=== PATIENT | male | born 1965 | race Caucasian/White ===

== ENCOUNTER 2024-06-20 15:07 | Emergency (ER) | payer OTHER ==
[2024-06-20 15:30] VITALS: O2SAT 98
[2024-06-20 15:42] LABS: BASOPHILS % (AUTO) 0.2 %; HCT - HEMATOCRIT 48.2 % (42.0-52.0); HGB - HEMOGLOBIN 16.1 g/dL (14.0-18.0); LYMPHOCYTES # (AUTO) 1.5 10^3/uL (1.5-3.5); LYMPHOCYTES % (AUTO) 8.4 %; MEAN CORPUSCULAR HEMOGLOBIN 28.9 pg (27.0-31.0); MEAN CORPUSCULAR HGB CONC 33.4 g/dL (32.0-36.0); MEAN CORPUSCULAR VOLUME 86.4 fL (80.0-94.0); MEAN PLATELET VOLUME 9.3 fL (7.4-11.4); MONOCYTES # (AUTO) 1.1 10^3/uL (0.0-1.0); MONOCYTES % (AUTO) 6.2 %; NEUTROPHILS # (AUTO) 15.1 10^3/uL (1.5-6.6); NEUTROPHILS % (AUTO) 84.9 %; PLT - PLATELET COUNT 272 10^3/uL (130-450); RED BLOOD COUNT 5.58 10^6/uL (4.70-6.10); RED CELL DISTRIBUTION WIDTH 13.7 % (12.0-15.0); WHITE BLOOD COUNT 17.8 x10^3/uL (4.8-10.8)
[2024-06-20 15:43] LABS: BILIRUBIN,URINE SMALL (NEGATIVE); GLUCOSE, URINE (UA) NEGATIVE (NEGATIVE); KETONES,URINE (UA) TRACE mg/dL (NEGATIVE); LEUKOCYTE ESTERASE, URINE NEGATIVE (NEGATIVE); NITRITE,URINE NEGATIVE (NEGATIVE); OCCULT BLOOD,URINE SMALL (NEGATIVE); PROTEIN,URINE 100 mg/dL (NEGATIVE); UROBILINOGEN,URINE 0.2 (NORMAL) E.U./dL (NORMAL)
[2024-06-20 15:46] LABS: CLARITY,URINE HAZY (CLEAR)
--- NOTE | 2024-06-20 15:49 | ED Physician Documentation ---
History of Present Illness - Stated complaint Stated Complaint: N/V,DEHYDRATION - Chief complaint Chief Complaint: General - Additonal information Additional information: 59-year-old male who is undergoing treatment for throat cancer and has had multiple complications with radiation who is n.p.o. and very cachectic appearing presents emergency department for dehydration. Patient reports that he is here visiting a friend from [place] he uses his cell phone to type out communication with staff. He recently flew in a couple days ago and has been having a hard time controlling his nausea and vomiting. Patient says that in [place] he no rmally gets 1 L of IV fluids every week for dehydration. He has Zofran at home but has been hard and being a hard time keeping his PEG tube feeds with oral Zofran because of the nausea and vomiting that he has been experiencing. Patient says that he does not want any labs or workup he is very confident that all he needs is a liter of IV fluids and appears to be quite decisional and not confused. Patient's friend is here with him in the emergency department drove him in today. Patient denies any fevers or chills no abdominal pain PD PAST MEDICAL HISTORY - Past Medical History Past Medical History: Yes - Past Surgical History Past Surgical History: No - Present Medications Home Medications: Ambulatory Orders Medication Instructions Recorded Confirmed Ondansetron Odt [Zofran Odt] 4 mg TL Q6H PRN #10 tablet 06/20/24 - Allergies Allergies/Adverse Reactions: Allergies Allergy/AdvReac Type Severity Reaction Status Date / Time No Known Drug Allergies Allergy Verified 06/20/24 15:19 - Social History Does the pt smoke?: No Smoking Status: Never smoker Does the pt drink ETOH?: No Does the pt have substance abuse?: No - Immunizations Immunizations are current?: Yes PD ED PE NORMAL - Vitals Vital signs reviewed: Yes - General General: Alert and oriented X 3, No acute distress, Other (cachectic) - HEENT HEENT: Atraumatic, PERRL - Cardiac Cardiac: Other (tachy) - Respiratory Respiratory: No respiratory distress, Clear bilaterally - Abdomen Abdomen: Normal bowel sounds, Soft, Non tender, No organomegaly Results - Vitals Vitals: Vital Signs - 24 hr 06/20/24 06/20/24 15:20 16:54 Temperature 36.8 C 36.7 C Heart Rate 88 95 Respiratory 18 18 Rate Blood Pressure 88/60 L 189/112 H O2 Saturation 98 98 Oxygen O2 Source Room air - Labs Labs: Laboratory Tests 06/20/24 06/20/24 06/20/24 15:30 15:30 15:30 WBC 17.8 H RBC 5.58 Hgb 16.1 Hct 48.2 MCV 86.4 MCH 28.9 MCHC 33.4 RDW 13.7 Plt Count 272 MPV 9.3 Neut # (Auto) 15.1 H Lymph # (Auto) 1.5 [place] # (Auto) 1.1 H Eos # (Auto) 0.0 Baso # (Auto) 0.0 Absolute Nucleated RBC 0.00 Nucleated RBC % 0.0 Sodium 138 Potassium 3.6 Chloride 94 L Carbon Dioxide 35 H Anion Gap 9.0 BUN 38 H Creatinine 1.1 Estimated GFR (MDRD) 69 L Glucose 122 H Calcium 11.4 H Total Bilirubin 0.9 AST 28 ALT 29 Alkaline Phosphatase 87 Total Protein 9.0 H Albumin 5.3 Globulin 3.7 Albumin/Globulin Ratio 1.4 Lipase 748 H Urine Color YELLOW Urine Clarity HAZY Urine pH 6.0 Ur Specific [place] >=1.030 H Urine Protein 100 H Urine Glucose (UA) NEGATIVE Urine Ketones TRACE Urine Occult Blood SMALL H Urine Nitrite NEGATIVE Urine Bilirubin SMALL H Urine Urobilinogen 0.2 (NORMAL) Ur Leukocyte Esterase NEGATIVE Urine RBC None Seen Urine WBC 4-5 Ur Squamous Epith Cells FEW Squamous Urine Bacteria Few Urine Casts 3-5 WBC Casts Urine Mucus Marked Strands Ur Microscopic Review INDICATED Urine Culture Comments NOT INDICATED PD Medical Decision Making - ED course ED course: 59-year-old male presents emergency department for nausea and vomiting. Patient is here visiting a friend for a golf tournament he is normally completely independent although he is quite cachectic patient's friend named Herb who brought him into the emergency department reports that this is how he is looked for the last 7 years. Patient appears to be alert and oriented he is not confused he says that he does not want further workup in the emergency department and just wants a liter of IV fluids as well as IV Zofran. Patient given IV Zofran as well as a liter of IV fluids and says that he feels confident he will be able to tolerate his PEG tube feeds now he says that he does not want labs done or any further workup. He is told to add electrolytes to his PEG tube feedings and that if he changes his mind and would like further workup to come back to the emergency department for further evaluation and IV fluids as needed. Patient's friend says that he is more than happy to bring him back to the emergency department if he has any worsening symptoms or if he is unable to tole rate his PEG tube feeds. Prescription of Zofran was sent to patient's preferred pharmacy [facility] and he says that he feels more than comfortable to come back if needed for further workup and evaluation Departure - Departure Disposition: 01 Home, Self Care Clinical Impression: Nausea & vomiting Instructions: ED Nausea Vomiting Prescriptions: Ondansetron Odt [Zofran Odt] 4 mg TL Q6H PRN #10 tablet PRN Reason: Nausea / Vomiting Comments: Thank you for trusting us with your care. If you change your mind and would like to pursue labs and further workup please come back to the emergency department. I have sent a prescription of Zofran to your preferred pharmacy on file. If you are unable to keep anything down please come back to the emergency department. I would encourage you to put things like Gatorade or coconut water in your PEG tube to help with electrolyte replenishment. Again if you start having shortness of breath chest pain or any worsening symptoms please come back to the emergency department. Forms: PCP List Discharge Date/Time: 06/20/24 16:54
[2024-06-20 15:58] LABS: ALBUMIN 5.3 g/dL (3.2-5.5); ALBUMIN/GLOBULIN RATIO 1.4 (1.0-2.2); BILIRUBIN,TOTAL 0.9 mg/dL (0.2-1.0); CALCIUM 11.4 mg/dL (8.5-10.3); CREATININE 1.1 mg/dL (0.6-1.3); POTASSIUM 3.6 mmol/L (3.5-4.5)
[2024-06-20 16:01] LABS: BACTERIA,URINE Few /HPF (None Seen); MUCUS,URINE Marked Strands; RBC,URINE None Seen /HPF (0-5); SQUAMOUS EPITHELIAL CELL,UR FEW Squamous (<= Few)
[2024-06-20] MEDS: ONDANSETRON 4 MG/2 ML VIAL IVP STA (16:10)
[2024-06-20] MEDS: SODIUM CHLORIDE 0.9% 1,000 ML IV ONE (16:10)
[2024-06-20 17:02] VITALS: BP 189/112
== END 2024-06-20 16:54 | disposition home or self-care (01) ==
LOC: ED 15:07
DX: R11.2 Nausea with vomiting, unspecified (principal); Z93.1 Gastrostomy status
CPT/HCPCS: 36415; 80053; 81001; 81003; 83690; 85025; 87086; 96374; 99283

== ENCOUNTER 2024-06-21 18:48 | Emergency (ER) | payer OTHER ==
--- NOTE | 2024-06-21 18:59 | ED Physician Documentation ---
History of Present Illness - Stated complaint Stated Complaint: DEHYDRATED - Chief complaint Chief Complaint: General - Additonal information Additional information: Patient is a 59-year-old male presenting to the emergency department with co ncerns of dehydration. Patient has past medical history of oropharyngeal cancer. He notes this was over 10 years ago. He is currently residing in [place] but visiting a friend here on Monday. Ever since his flight here he has had difficulty with nausea vomiting fatigue, lightheadedness, dizziness. Patient was seen here yesterday in the emergency department and discharged home after fluids and Zofran were given and he was feeling significantly better. Patient has PEG tube in place due to difficulty swallowing and history of aspiration. He notes today he had multiple episodes of vomiting and has concerns for aspiration. He notes this morning he also had a syncopal episode due to lightheadedness. Patient notes while in [place] he usually receives weekly IV infusions of saline due to difficulty with p.o. intake at home. Patient notes he was unable to get this since he was on vacation this week. Patient did receive 1 L of fluids yesterday and felt significantly better but when he went home and tried to do PEG tube feedings again his nausea and vomiting returned. He has been trying oral [id number] Zofran but no relief. He denies any fevers he has had some mild congestion but no other symptoms. Patient is not currently undergoing chemo treatment or radiation treatment this was multiple years ago and his oropharyngeal cancer is in remission. PD PAST MEDICAL HISTORY - Past Medical History Past Medical History: Yes - Past Surgical History Past Surgical History: No - Present Medications Home Medications: Ambulatory Orders Medication Instructions Recorded Confirmed Ondansetron Odt [Zofran Odt] 4 mg TL Q6H PRN #10 tablet 06/20/24 - Allergies Allergies/Adverse Reactions: Allergies Allergy/AdvReac Type Severity Reaction Status Date / Time No Known Drug Allergies Allergy Verified 06/21/24 18:52 - Social History Does the pt smoke?: No Smoking Status: Never smoker Does the pt drink ETOH?: No Does the pt have substance abuse?: No - Immunizations Immunizations are current?: Yes - POLST Patient has POLST: No PD ED PE NORMAL - Vitals Vital signs reviewed: Yes - General General: Alert and oriented X 3, Other (Patient is cachectic appearing but able to answer questions.) - HEENT HEENT: Atraumatic - Neck Neck: Supple, no meningeal sign - Cardiac Cardiac: RRR, No murmur, No gallop, No rub - Respiratory Respiratory: No respiratory distress - Abdomen Abdomen: Normal bowel sounds, Soft, Non tender, Non distended - Male Male : Deferred - Rectal Rectal: Deferred - Back Back: No CVA TTP, No spinal TTP - Extremities Extremities: No deformity - Neuro Neuro: Alert and oriented X 3 Eye Opening: Spontaneous Motor: Obeys Commands Verbal: Oriented GCS Score: 15 - Psych Psych: Normal mood Results - Vitals Vitals: Vital Signs - 24 hr 06/21/24 06/21/24 18:52 20:21 Temperature 36.8 C Heart Rate 80 Respiratory 16 Rate Blood Pressure 90/50 L 138/76 H O2 Saturation 100 Oxygen O2 Source Room air - Labs Labs: Laboratory Tests 06/21/24 06/21/24 06/21/24 19:09 19:09 19:09 WBC 11.6 H RBC 4.92 Hgb 14.1 Hct 43.2 MCV 87.8 MCH 28.7 MCHC 32.6 RDW 13.8 Plt Count 194 MPV 9.4 Neut # (Auto) 9.7 H Lymph # (Auto) 1.3 L [place] # (Auto) 0.6 Eos # (Auto) 0.0 Baso # (Auto) 0.0 Absolute Nucleated RBC 0.00 Nucleated RBC % 0.0 Sodium 138 Potassium 3.7 Chloride 98 L Carbon Dioxide 34 H Anion Gap 6.0 BUN 40 H Creatinine 1.0 Estimated GFR (MDRD) 77 L Glucose 138 H Calcium 9.9 Magnesium 2.1 Total Bilirubin 0.7 AST 23 ALT 25 Alkaline Phosphatase 67 Troponin I High Sens 7.5 Total Protein 7.9 Albumin 4.5 Globulin 3.4 Albumin/Globulin Ratio 1.3 Lipase 70 Urine Color Urine Clarity Urine pH Ur Specific [place] Urine Protein Urine Glucose (UA) Urine Ketones Urine Occult Blood Urine Nitrite Urine Bilirubin Urine Urobilinogen Ur Leukocyte Esterase Ur Microscopic Review Urine Culture Comments Nasal Adenovirus (PCR) Nasal B. parapertussis DNA (PCR) Nasal Coronavir 229E PCR Nasal Coronavir HKU1 PCR Nasal Coronavir NL63 PCR Nasal Coronavir OC43 PCR Nasal Enterovir/Rhinovir PCR Nasal Influenza B PCR Nasal Influenza A PCR Nasal Parainfluen 1 PCR Nasal Parainfluen 2 PCR Nasal Parainfluen 3 PCR Nasal Parainfluen 4 PCR Nasal RSV (PCR) Nasal B.pertussis DNA PCR Nasal C.pneumoniae (PCR) Zohaib Human Metapneumo PCR Nasal M.pneumoniae (PCR) Nasal SARS-CoV-2 (PCR) 06/21/24 06/21/24 19:14 21:18 WBC RBC Hgb Hct MCV MCH MCHC RDW Plt Count MPV Neut # (Auto) Lymph # (Auto) [place] # (Auto) Eos # (Auto) Baso # (Auto) Absolute Nucleated RBC Nucleated RBC % Sodium Potassium Chloride Carbon Dioxide Anion Gap BUN Creatinine Estimated GFR (MDRD) Glucose Calcium Magnesium Total Bilirubin AST ALT Alkaline Phosphatase Troponin I High Sens Total Protein Albumin Globulin Albumin/Globulin Ratio Lipase Urine Color YELLOW Urine Clarity CLEAR Urine pH 7.0 Ur Specific [place] 1.010 Urine Protein NEGATIVE Urine Glucose (UA) NEGATIVE Urine Ketones NEGATIVE Urine Occult Blood TRACE-LYSE Urine Nitrite NEGATIVE Urine Bilirubin NEGATIVE Urine Urobilinogen 0.2 (NORMAL) Ur Leukocyte Esterase NEGATIVE Ur Microscopic Review NOT INDICATED Urine Culture Comments NOT INDICATED Nasal Adenovirus (PCR) NOT DETECTED Nasal B. parapertussis DNA (PCR) NOT DETECTED Nasal Coronavir 229E PCR NOT DETECTED Nasal Coronavir HKU1 PCR NOT DETECTED Nasal Coronavir NL63 PCR NOT DETECTED Nasal Coronavir OC43 PCR NOT DETECTED Nasal Enterovir/Rhinovir PCR NOT DETECTED Nasal Influenza B PCR NOT DETECTED Nasal Influenza A PCR NOT DETECTED Nasal Parainfluen 1 PCR NOT DETECTED Nasal Parainfluen 2 PCR NOT DETECTED Nasal Parainfluen 3 PCR NOT DETECTED Nasal Parainfluen 4 PCR NOT DETECTED Nasal RSV (PCR) NOT DETECTED Nasal B.pertussis DNA PCR NOT DETECTED Nasal C.pneumoniae (PCR) NOT DETECTED Zohaib Human Metapneumo PCR NOT DETECTED Nasal M.pneumoniae (PCR) NOT DETECTED Nasal SARS-CoV-2 (PCR) NOT DETECTED PD Medical Decision Making - ED course Complexity details: reviewed old records, reviewed results ED course: Patient is a 59-year-old male with past medical history of oropharyngeal cancer he usually resides in [place] but is visiting a friend. Patient was seen here for similar symptoms yesterday of nausea vomiting dehydration. Patient has a PEG tube in place but has been unable to tolerate PEG tube feedings at this time. He notes generalized fatigue and had an episode of syncope this morning due to feelings of lightheadedness and dehydration. On arrival EKG was reassuring there did appear to be peaked T waves but his potassium was negative. Labs obtained here compared to labs yesterday showed improvement in his lipase was 748 yesterday and today was 70 he had a white count of 17 yesterday but 11 today and his creatinine improved from 1.1-1.0 today. Patient has no significant electrolyte abnormalities. Patient given 1 L of fluids here in the emergency department and Zofran but had an episode of vomiting shortly after. Patient given Reglan, Benadryl and another liter of fluids here in the emergency department. Given persistent nausea and vomiting and abnormal symptoms will ob tain CT abdomen to further evaluate symptoms. Chest x-ray shows no signs of pneumonia or aspiration concerning given his nausea and vomiting this morning. Patient is agreeable with this plan here in the emergency department. 1020: Patient taken over by Dr. Rangel. Departure - Departure Forms: PCP List
[2024-06-21 19:22] LABS: BASOPHILS % (AUTO) 0.3 %; HCT - HEMATOCRIT 43.2 % (42.0-52.0); HGB - HEMOGLOBIN 14.1 g/dL (14.0-18.0); LYMPHOCYTES # (AUTO) 1.3 10^3/uL (1.5-3.5); LYMPHOCYTES % (AUTO) 10.8 %; MEAN CORPUSCULAR HEMOGLOBIN 28.7 pg (27.0-31.0); MEAN CORPUSCULAR HGB CONC 32.6 g/dL (32.0-36.0); MEAN CORPUSCULAR VOLUME 87.8 fL (80.0-94.0); MEAN PLATELET VOLUME 9.4 fL (7.4-11.4); MONOCYTES # (AUTO) 0.6 10^3/uL (0.0-1.0); MONOCYTES % (AUTO) 4.7 %; NEUTROPHILS # (AUTO) 9.7 10^3/uL (1.5-6.6); NEUTROPHILS % (AUTO) 83.9 %; PLT - PLATELET COUNT 194 10^3/uL (130-450); RED BLOOD COUNT 4.92 10^6/uL (4.70-6.10); RED CELL DISTRIBUTION WIDTH 13.8 % (12.0-15.0); WHITE BLOOD COUNT 11.6 x10^3/uL (4.8-10.8)
[2024-06-21 19:32] LABS: MAGNESIUM 2.1 mg/dL (1.7-2.3)
[2024-06-21] MEDS: SODIUM CHLORIDE 0.9% 1,000 ML IV STA ×2 (19:33→20:44)
[2024-06-21 19:38] LABS: ALBUMIN 4.5 g/dL (3.2-5.5); ALBUMIN/GLOBULIN RATIO 1.3 (1.0-2.2); BILIRUBIN,TOTAL 0.7 mg/dL (0.2-1.0); CALCIUM 9.9 mg/dL (8.5-10.3); POTASSIUM 3.7 mmol/L (3.5-4.5); TOTAL PROTEIN 7.9 g/dL (6.4-8.9)
[2024-06-21] MEDS: ONDANSETRON 4 MG/2 ML VIAL IVP STA (20:09)
[2024-06-21 20:20] LABS: B. PARAPERTUSSIS- RESP PCR PAN NOT DETECTED; B. PERTUSSIS- RESP PCR PANEL NOT DETECTED; C. PNEUMONIAE- RESP PCR PANEL NOT DETECTED; CORONAVIRUS 229E-RESP PCR NOT DETECTED; CORONAVIRUS HKU1-RESP PCR NOT DETECTED; CORONAVIRUS NL63-RESP PCR NOT DETECTED; CORONAVIRUS OC43-RESP PCR NOT DETECTED; HUMAN METAPNEUMOVIRUS NOT DETECTED; INFLUENZA A- RESP PCR PANEL NOT DETECTED; INFLUENZA B - RESP PCR PANEL NOT DETECTED; M. PNEUMONIAE- RESP PCR PANEL NOT DETECTED; PARAINFLUENZA VIRUS 1 NOT DETECTED; PARAINFLUENZA VIRUS 2 NOT DETECTED; PARAINFLUENZA VIRUS 3 NOT DETECTED; PARAINFLUENZA VIRUS 4 NOT DETECTED; RHINOVIRUS/ENTEROVIRUS NOT DETECTED; RSV- RESP PCR PANEL NOT DETECTED; SARS-CoV-2 -RESP PCR PANEL NOT DETECTED
[2024-06-21] MEDS: diphenhydrAMINE INJ 50 MG/ML VIAL IVP STA (21:21)
[2024-06-21] MEDS: FAMOTIDINE 20 MG/2 ML VIAL IVP STA (21:22)
[2024-06-21] MEDS: METOCLOPRAMIDE 10 MG/2 ML VIAL IVP STA (21:25)
[2024-06-21 21:26] LABS: BILIRUBIN,URINE NEGATIVE (NEGATIVE); GLUCOSE, URINE (UA) NEGATIVE (NEGATIVE); KETONES,URINE (UA) NEGATIVE (NEGATIVE); LEUKOCYTE ESTERASE, URINE NEGATIVE (NEGATIVE); NITRITE,URINE NEGATIVE (NEGATIVE); OCCULT BLOOD,URINE TRACE-LYSE (NEGATIVE); PROTEIN,URINE NEGATIVE (NEGATIVE); UROBILINOGEN,URINE 0.2 (NORMAL) E.U./dL (NORMAL)
[2024-06-21 21:34] LABS: CLARITY,URINE CLEAR (CLEAR)
--- NOTE | 2024-06-21 21:36 | XRAY Report ---
PROCEDURE: Chest 1V INDICATIONS: congestion, concern for aspiration TECHNIQUE: One view of the chest was acquired. COMPARISON: None. FINDINGS: Surgical changes and devices: None. Lungs and pleura: No pleural effusions or pneumothorax. Lungs are clear. Hyperexpansion. Mediastinum: Mediastinal contours appear normal. Heart size is normal. Bones and chest wall: No suspicious bony lesions. Overlying soft tissues appear unremarkable. IMPRESSION: No acute cardiopulmonary process. Reviewed by: Philippe Abarca MD on 06/21/2024 9:35 PM PDT Approved by: Philippe Abarca MD on 06/21/2024 9:35 PM PDT Station ID: [id number]
[2024-06-21] MEDS ORDERED: iohexoL-300 100 ML VIAL ONE (22:59)
--- NOTE | 2024-06-22 00:01 | ED Physician Documentation ---
ED Addendum - Addendum Addendum: 06/22/24 02:15 I received signout/turnover of care on this patient from BLESSING Gil; please see her note for complete H&P. In brief, this patient was treated and released from this emergency department yesterday for treatment of nausea and vomiting. Patient's past medical history includes oropharyngeal cancer; patient has a PEG tube due to this. He returns tonight due to ongoing nausea and vomiting. He was prescribed ondansetron which has apparently not provided adequate relief of the nausea and vomiting. Elevated white blood cell count noted on yesterday's visit but this has significantly improved and is nearly normal tonight. Patient had high lipase on yesterday's visit (over 700), but it is normal on tonight's draw. Patient has been given famotidine, Benadryl, Zofran, and Reglan IV along with 2 L of fluid by the time of the turnover of care. A CT scan of the abdomen pelvis with IV and p.o. contrast is pending at the time of turnover. There are no concerning nor diagnostic findings on the CT scan. Radiologist makes note of a dilated pancreatic duct, but given the normalization of the patient's lipase, this is a noncontributory finding. There is no evidence of other pathology including no evidence of bowel obstruction. On my evaluation of this patient, I discussed the CT result with the patient along with the results of his blood tests. His mucous membranes are very pasty, dry. He is actively dry heaving at times during this reevaluation. He denies having any pain. Because he is having ongoing dry heaving, I recommended a third liter of IV NS (patient's BUN is 40 with a 1.1 creatinine, which would support significant dehydration), as well as a third dose of anti-nausea medication (specifically, 8 mg of Zofran is my recommendation); patient agrees with these measures. Should he not have resolution of his vomiting/dry-heaving after these measures, he would likely benefit from admission for ongoing IV hydration and as-needed antinausea medications. 06/22/24 03:22 On reevaluation after the 8 mg Zofran IV and third liter of NS was given, patient reports feeling resolution of n/v and says he is comfortable with d/c home at this time. Return precautions reviewed.
[2024-06-22] MEDS ORDERED: DIATRIZOATE MEGLU/DIATRIZO SOD 30 ML BOTTLE PO ONE (00:06)
[2024-06-22] MEDS ORDERED: iohexoL-300 100 ML VIAL ONE ×2 (00:07→00:53)
[2024-06-22] MEDS: iohexoL-300 100 ML VIAL IVP ONE (01:37)
[2024-06-22] MEDS: DIATRIZOATE MEGLU/DIATRIZO SOD 30 ML BOTTLE PO ONE (01:39)
--- NOTE | 2024-06-22 01:47 | CT Report ---
PROCEDURE: Abdomen/Pelvis W INDICATIONS: epigastric pain, nausea, vomiting, hx of ca CONTRAST: 100 ML OMNI 300 TECHNIQUE: After the administration of intravenous contrast, a CT scan of the abdomen and pelvis was performed. Images were recorded and evaluated at appropriate window settings. Reformats: coronal and sagittal. F or radiation dose reduction, the following was used: automated exposure control, adjustment of mA and /or kV according to patient size. COMPARISON: None. FINDINGS: Image quality: Diagnostic. Lower chest: Small hiatal hernia. Liver: No solid mass. Gallbladder: No radiopaque stones or wall thickening. Biliary tree: No intrahepatic or extrahepatic dilation, accounting for age. Spleen: No splenomegaly. Pancreas: Pancreatic ductal dilation. Adrenals: No adrenal nodule. Kidneys and ureters: No hydronephrosis. No renal cystic lesion which requires follow up. No solid mas s. Stomach, bowel and peritoneum: No gastric or small bowel dilation. No abnormal wall thickening. No pa thologic free fluid. Normal appendix. Percutaneous gastrostomy tube has a normal appearance. Lymph nodes: No central or retroperitoneal adenopathy. Vessels: No infrarenal aortic aneurysm. Patent portal vein. PELVIS Reproductive organs: Unremarkable. Bladder: No abnormal wall thickening, accounting for underdistention. Pelvic lymph nodes: No pelvic adenopathy by size criteria. Bones: No aggressive osseous abnormality. Other: No significant ventral or inguinal hernia. IMPRESSION: No acute abnormality. No evidence of bowel obstruction. Pancreatic ductal dilation without visualized mass. Consider outpatient GI referral for further susan p. Reviewed by: Philippe Abarca MD on 06/22/2024 1:45 AM PDT Approved by: Philippe Abarca MD on 06/22/2024 1:45 AM PDT Station ID: [id number]
[2024-06-22 02:15] VITALS: O2SAT 96
[2024-06-22] MEDS: SODIUM CHLORIDE 0.9% 1,000 ML IV STA (02:31)
[2024-06-22] MEDS: ONDANSETRON 4 MG/2 ML VIAL IVP STA (02:31)
[2024-06-22 03:03] VITALS: BP 144/78
== END 2024-06-22 03:03 | disposition home or self-care (01) ==
LOC: ED 18:48
DX: E86.0 Dehydration (principal); Z93.1 Gastrostomy status; Z85.818 Personal history of malignant neoplasm of other sites of lip, oral cavity, and pharynx
CPT/HCPCS: 36415; 71045; 74177; 80053; 81003; 83690; 83735; 84484; 85025; 87633; 93005; 96361; 96374; 96375; 96376; 99284; J1200; J2765; Q9963; Q9967; 81001; 87086